=== PATIENT | female | born 1990 | race Caucasian/White ===

== ENCOUNTER 2019-04-08 22:46 | Emergency (ER) | payer OTHER ==
[~2019-04-08] VITALS: Ht 167.6 cm; Wt 71.0 kg
[2019-04-08] MEDS ORDERED: METOCLOPRAMIDE 5 MG/ML, 2ML ONE (23:19)
--- NOTE | 2019-04-08 23:28 | NUR ---
IV PLACED, MED GIVEN PER ERP ORDER. CALL LIGHT WITHIN REACH, AT BS.
[2019-04-08] MEDS ORDERED: METOCLOPRAMIDE 5 MG/ML, 2ML IVPush ONE (23:30)
--- NOTE | 2019-04-09 | NUR ---
REPORT TO JEREMIE EDGE, TRANSFER OF CARE AT THIS TIME.
--- NOTE | 2019-04-09 00:22 | NUR ---
LUNCH RN: PT STILL HAS SINHA. PER DR. ROBERTS PT TO RECEIVE MAG. MED REQUESTED FROM PHARMACY
[2019-04-09] MEDS ORDERED: MAGNESIUM SULFATE PMX 2GM/50ML 50 ML ONE (00:26)
[2019-04-09] MEDS ORDERED: MAGNESIUM SULFATE PMX 2GM/50ML 50 ML IV ONE (00:30)
--- NOTE | 2019-04-09 00:37 | NUR ---
PT MEDICATED PER EMAR. [address] ROBERTS, RUN MAG OVER 1 HOUR INSTEAD OF 2 HOURS. PT ATTACHED TO ANATOMY PROFESSOR AND OTHER MONITORING EQUIPMENT. FAMILY AT BEDSIDE. WILL CONTINUE TO MONITOR.
--- NOTE | 2019-04-09 01:30 | NUR ---
PT HAS BEEN GIVEN ICE PACK. MAG DONE. PT REPORTS MINIMAL IMPROVEMENT IN SINHA. PT UP FOR RECHECK.
--- NOTE | 2019-04-09 02:11 | NUR ---
pt able to ambulate to bathroom steadily. ordered fluids infusing at this time. pt vss.
[2019-04-09] MEDS ORDERED: SODIUM CHLORIDE 0.9% 1,000ML IVBOLUS ONE (02:30)
[2019-04-09 02:55] VITALS: BP 106/64
== END 2019-04-09 02:54 | disposition home or self-care (01) ==
LOC: ED 04-09 02:50
DX: O26.891 Other specified pregnancy related conditions, first trimester (principal); R51 Headache; Z3A.10 10 weeks gestation of pregnancy
CPT/HCPCS: 96365; 96366; 96375; 99283; J2765; J3475; J7030

== ENCOUNTER 2019-10-29 16:59 | Outpatient (CLI) | payer OTHER ==
[~2019-10-29] VITALS: Ht 167.6 cm; Wt 84.1 kg
[2019-10-29 17:32] VITALS: BP 136/82
[2019-10-29] MEDS ORDERED: PREN1TAB60 PO (18:41)
[2019-10-30] MEDS ORDERED: LEVO125T PO (13:52)
[2019-10-30] MEDS ORDERED: ESCI10TA10 PO (13:53)
[2019-11-02] MEDS ORDERED: IBUP-1222 PO (11:09)
== END 2019-10-29 19:27 | disposition home or self-care (01) ==
LOC: LDOP 16:59
PROVIDERS: ATTEND Obstetrics & Gynecology
DX: O42.90 Premature rupture of membranes, unspecified as to length of time between rupture and onset of labor, unspecified weeks of gestation (principal); Z3A.40 40 weeks gestation of pregnancy
CPT/HCPCS: 59025; 84112; 99211; G0463

== ENCOUNTER 2020-11-22 15:33 | Emergency (ER) | payer OTHER ==
[~2020-11-22] VITALS: Ht 167.6 cm; Wt 60.8 kg
[~2020-11-22 15:33] MED LIST: ESCI10TA10 PO; IBUP-1222 PO; LEVO125T PO; PREN1TAB60 PO
[2020-11-22 16:24] LABS: BASOPHILS % (AUTO) 1 % (0-1); EOSINOPHILS % (AUTO) 0 % (1-7); LYMPHOCYTES % (AUTO) 18 % (22-44); MEAN CORPUSCULAR HEMOGLOBIN 31.9 pg (27.0-34.8); MEAN CORPUSCULAR HGB CONC 33.7 g/dL (32.4-35.8); MEAN PLATELET VOLUME 9.3 fL (7.4-10.4); MONOCYTES % (AUTO) 5 % (2-9); NEUTROPHILS % (AUTO) 76 % (42-75); PLATELET COUNT 285 x10^3/uL (130-400); RED BLOOD COUNT 4.81 x10^6/uL (3.82-5.3); RED CELL DISTRIBUTION WIDTH 13.3 % (9.6-15.2)
[2020-11-22 16:25] LABS: MD NO
[2020-11-22 16:32] LABS: ALBUMIN 4.8 g/dL (3.4-5.0); ANION GAP 8 mmol/L (5-15); CALCIUM 9.3 mg/dL (8.5-10.1); CHLORIDE 104 mmol/L (98-107)
[2020-11-22 16:49] LABS: ALANINE AMINOTRANSFERASE 27 U/L (12-78); ALKALINE PHOSPHATASE 43 U/L (45-117); BILIRUBIN,TOTAL 0.7 mg/dL (0.2-1.0); CREATININE 0.87 mg/dL (0.55-1.02); TOTAL PROTEIN 8.8 g/dL (6.4-8.2)
--- NOTE | 2020-11-22 19:17 | NUR ---
pt to room from lobby
[2020-11-22 19:27] LABS: MICROSCOPIC NOT IND
--- NOTE | 2020-11-22 19:40 | NUR ---
PT RESTING IN BED, PT PROVIDED AN BLANKET. PT ON MONITOR WITH PT VSS
[2020-11-22 21:25] VITALS: BP 134/74
== END 2020-11-22 21:27 | disposition home or self-care (01) ==
LOC: ED 19:49
DX: R10.11 Right upper quadrant pain (principal); R06.02 Shortness of breath; G89.29 Other chronic pain
CPT/HCPCS: 36415; 71046; 76700; 80053; 81003; 84703; 85025; 99285

== ENCOUNTER 2020-11-25 12:04 | Emergency (ER) | payer OTHER ==
[~2020-11-25] VITALS: Ht 167.6 cm; Wt 60.0 kg
--- NOTE | 2020-11-25 13:33 | NUR ---
PT AMBULATED TO RESTROOM WITH STEADY GAIT TO PROVIDE URINE SAMPLE. UA COLLECTED AND SENT TO LAB.
[2020-11-25 13:50] LABS: HCG UR SG 1.008 (1.003-1.030); MICROSCOPIC NOT IND
[2020-11-25 13:58] LABS: BASOPHILS % (AUTO) 1 % (0-1); EOSINOPHILS % (AUTO) 0 % (1-7); LYMPHOCYTES % (AUTO) 26 % (22-44); MD NO; MEAN CORPUSCULAR HEMOGLOBIN 31.9 pg (27.0-34.8); MEAN CORPUSCULAR HGB CONC 33.6 g/dL (32.4-35.8); MONOCYTES % (AUTO) 6 % (2-9); NEUTROPHILS % (AUTO) 67 % (42-75); PLATELET COUNT 263 x10^3/uL (130-400); RED BLOOD COUNT 4.51 x10^6/uL (3.82-5.3); RED CELL DISTRIBUTION WIDTH 13.2 % (9.6-15.2)
[2020-11-25 14:09] LABS: ALANINE AMINOTRANSFERASE 28 U/L (12-78); ALBUMIN 4.2 g/dL (3.4-5.0); ANION GAP 4 mmol/L (5-15); CALCIUM 8.8 mg/dL (8.5-10.1); CHLORIDE 109 mmol/L (98-107); CREATININE 0.82 mg/dL (0.55-1.02)
[2020-11-25 14:19] LABS: ALKALINE PHOSPHATASE 40 U/L (45-117); BILIRUBIN,TOTAL 0.5 mg/dL (0.2-1.0); FREE T4 (FREE THYROXINE) 1.48 ng/dL (0.76-1.46); TOTAL PROTEIN 7.8 g/dL (6.4-8.2)
--- NOTE | 2020-11-25 14:33 | NUR ---
ALL RESULTS ARE BACK AT THIS TIME. CHART UP FOR RECHECK/.
--- NOTE | 2020-11-25 15:21 | NUR ---
MD AT BEDSIDE TO UPDATE PT ON POC.
[2020-11-25 16:08] VITALS: BP 117/68
--- NOTE | 2020-11-25 16:08 | NUR ---
DIRECTOR OF INSTRUMENTAL MUSIC PER MAR.
== END 2020-11-25 16:26 | disposition home or self-care (01) ==
LOC: ED 13:29
DX: F32.1 Major depressive disorder, single episode, moderate (principal); F41.1 Generalized anxiety disorder; E06.3 Autoimmune thyroiditis; R20.0 Anesthesia of skin; R00.2 Palpitations; R06.02 Shortness of breath; M54.2 Cervicalgia
CPT/HCPCS: 36415; 80053; 81003; 81025; 84439; 84443; 85025; 93005; 99284

== ENCOUNTER → 2020-11-29 | Outpatient (CLI) | payer OTHER | END | disposition home or self-care (01) | LOC: RAD 14:16 | PROVIDERS: ATTEND Family Medicine | DX: M41.85 Other forms of scoliosis, thoracolumbar region (principal); R20.2 Paresthesia of skin; M41.20 Other idiopathic scoliosis, site unspecified | CPT/HCPCS: 72050; 72072; 72100; 72141 ==

== ENCOUNTER → 2020-12-05 | Outpatient (CLI) | payer OTHER | END | disposition home or self-care (01) | LOC: RAD 06:45 → EDSTATUS 07:15 | PROVIDERS: ATTEND Family Medicine | DX: M41.86 Other forms of scoliosis, lumbar region (principal); R20.2 Paresthesia of skin | CPT/HCPCS: 70551; 72148 ==